=== PATIENT | female | born 1955 | race Caucasian/White ===

== ENCOUNTER 2018-04-14 11:17 | Day surgery (SDC) | payer OTHER, MEDICARE ==
[2018-04-14] MEDS ORDERED: LR 1,000 ML IV ONE (12:21)
--- NOTE | 2018-04-14 12:33 | PDGENHP ---
History & Physical Chief Complaint: heartburn, reflux History of Present Illness: occ dysphagia to pills, HB more then previously Pertinent Past, Social, Family History: high chol, on pepcid, on paxil. no fhx colon cancer. no tobacco, no alcohol, drinks tea Relevant Physical Exam: A+Ox3. CTA. S1S2, RRR. +BS, soft nt Cardiorespiratory Assessment: class 2
--- NOTE | 2018-04-14 12:35 | PDANEPAE ---
ANE History of Present Illness EGD for heartburn and cough ANE Past Medical History - Cardiovascular History Hx Hypertension: No Hx Arrhythmias: No Hx Chest Pain: No Hx Coronary Artery / Peripheral Vascular Disease: No Hx CHF / Valvular Disease: No Hx Palpitations: No - Pulmonary History Hx COPD: No Hx Asthma/Reactive Airway Disease: No Hx Recent Upper Respiratory Infection: No Hx Oxygen in Use at Home: No Hx Sleep Apnea: No Sleep Apnea Screening Result - Last Documented: Negative - Neurologic History Hx Cerebrovascular Accident: No Hx Seizures: No Hx Dementia: No - Endocrine History Hx Diabetes: No - Renal History Hx Renal Disorders: No - Liver History Hx Hepatic Disorders: No - Neurological & Psychiatric Hx Hx Neurological and Psychiatric Disorders: Yes Neurological / Psychiatric History Comment: DEPRESSION - Cancer History Hx Cancer: No - Congenital Disorder History Hx Congenital Disorders: No - GI History Hx Gastrointestinal Disorders: Yes Gastrointestinal History Comment: HEARTBURN - Other Health History Other Health History: DRY COUGH FOR YEARS - Chronic Pain History Chronic Pain: No - Surgical History Prior Surgeries: COLONOSCOPIES. PART HYST. CYSTOCELE/RECTOCELE REPAIR. BILATERAL CATARACTS. RT ARM CLOSED REDUCTION FX ANE Review of Systems Review of Systems: - Exercise capacity METS (RN): 6 METS ANE Patient History - Allergies Allergies/Adverse Reactions: amoxicillin [Amoxicillin] Allergy (Mild, Verified 04/06/18 15:06) Rash azithromycin Allergy (Verified 04/06/18 15:08) Rash doxycycline Allergy (Verified 04/06/18 15:08) Rash metronidazole [From Flagyl] Allergy (Verified 04/06/18 15:06) DIZZY/DISORIENTATION midazolam [From Versed] Allergy (Verified 04/14/18 12:30) Penicillins Allergy (Verified 04/06/18 15:06) Rash - Home Medications Home Medications: Paxil DAILY 10/28/13 [Last Taken 04/13/18] Famotidine BID 04/06/18 [Last Taken 04/13/18] Herbals/Supplements -Info Only DAILY 04/06/18 [Last Taken 03/09/18] Methylfolate DAILY 04/06/18 [Last Taken 04/13/18 18:00] - NPO status NPO Since - Liquids (Date): 04/14/18 NPO Since - Liquids (Time): 08:00 NPO Since - Solids (Date): 04/13/18 - Anes Hx Anes Hx: no prior problems - Smoking Hx Smoking Status: Never smoked - Alcohol Use Alcohol Use: None ANE Labs/Vital Signs - Vital Signs Blood Pressure: 127/77 Heart Rate: 65 Respiratory Rate: 16 O2 Sat (%): 97 Height: 165.1 cm Weight: 67.132 kg ANE Physical Exam - Airway Neck exam: FROM Mallampati Score: Class 2 Mouth exam: normal dental/mouth exam - Pulmonary Pulmonary: no respiratory distress - Cardiovascular Cardiovascular: regular rate and rhythym - ASA Status ASA Status: I ANE Anesthesia Plan Anesthesia Plan: GA with mask Total IV Anesthesia: Yes
[2018-04-14] MEDS ORDERED: fentaNYL 100 MCG/2 ML INJ ONE (12:41)
[2018-04-14] MEDS ORDERED: PROPOFOL 200 MG/20 ML VIAL ONE (12:41)
--- NOTE | 2018-04-14 13:03 | GIREPORT ---
[facility] [place] Surgical Services - Endoscopy Department Patient Name: Gabi Bravo Procedure Date: 04/14/2018 12:16 PM Patient Type: Outpatient Attending MD/ ER Physician: Jerry Means Procedure: Upper GI endoscopy Indications: Dysphagia, Heartburn Providers: Som Hunt MD Referring MD: Octavia Walker Medicines: Propofol per Anesthesia = IV general w/o airway Complications: No immediate complications. Estimated blood loss: Minimal. Description of Procedure: After obtaining informed consent, the endoscope was passed under direct vision. Throughout the procedure, the patient's blood pressure, pulse, and oxygen saturations were monitored continuously. The Endoscope was intro duced through the mouth, and advanced to the third part of duodenum. The uppe r GI endoscopy was accomplished without difficulty. The patient tolerated th e procedure well. Findings: The upper third of the esophagus was normal. Biopsies were obtained fro m the proximal and distal esophagus with cold forceps for histology of suspec jacob eosinophilic esophagitis. LA Grade A (one or more mucosal breaks less than 5 mm, not extending be tween tops of 2 mucosal folds) esophagitis with no bleeding was found in the lower third of the esophagus. Biopsies were taken with a cold forceps for histology. Estimated blood loss was minimal. Diffuse mild inflammation characterized by erosions, erythema and friab ility was found in the gastric antrum. Biopsies were taken with a cold forcep s for histology. Estimated blood loss was minimal. The examined duodenum was normal. The exam was otherwise without abnormality. Estimated Blood Loss: Estimated blood loss was minimal. Post Op Diagnosis: - Normal upper third of esophagus. Biopsied. - LA Grade A reflux esophagitis. Biopsied. (minimal changes of reflux o n EGD) - Gastritis. Biopsied. - Normal examined duodenum. - The examination was otherwise normal. Recommendation: - Await pathology results. - My office will call with the pathology result with 5-7 days. If you h ave not heard from my office by 12-14, do not assume the pathology is vignesh l, please call [phone] to get the pathology reults. - Follow an antireflux regimen. - If no evidence of Tellez's, the correct amount of acid reducing mediations is the lest amount that controls her symptoms. can change be tween PPI and H2RA as needed. - Can try pepcid 10mg BID as long as pathology is not c/w Tellez's (I doubt Tellez's). If continues to do well can try once per day. - Follow an antireflux regimen. - Patient has a contact number available for emergencies. The signs and symptoms of potential delayed complications were discussed with the pat ient. Return to normal activities tomorrow. Written discharge instructions we re provided to the patient. - Continue present medications. - Discharge patient to home (ambulatory). - Return to GI clinic PRN. - Return to primary care physician as previously scheduled. - Thank you for allowing me to help in your patient's care. Do not hesi copeland to call with any questions. Attending Participation: I personally performed the entire procedure. Gilbert Kearns M.D Som Hunt MD 04/14/2018 1:03:04 PM This report has been signed electronicallyMathew MD Gilbert Number of Addenda: 0 Note Initiated On: 04/14/2018 12:16 PM [email or web address]
[2018-04-14 13:50] VITALS: BP 98/88
--- NOTE | 2018-04-15 07:04 | POSTANESTH ---
Post Anesthetic Evaluation Cardiovascular Status: Normal, Stable Respiratory Status: Normal, Stable Level of Consciousness/Mental Status: Can Participate in Eval Pain Control: Adequate, Prn Tx Ordered Nausea/Vomiting Control: Adequate, Prn Tx Ordered Complications Possibly Related to Anesthesia: None Noted (seen in PACU about 1330 on 04/14/18)
== END 2018-04-14 14:08 | disposition home or self-care (01) ==
LOC: FSGY 11:17
PROVIDERS: ATTEND Internal Medicine Gastroenterology
PROC: 0DB38ZX Excision of Lower Esophagus, Via Natural or Artificial Opening Endoscopic, Diagnostic (ICD-10-PCS; principal; 2018-04-14 12:30)
PROC: 0DB68ZX Excision of Stomach, Via Natural or Artificial Opening Endoscopic, Diagnostic (ICD-10-PCS; principal; 2018-04-14 12:30)
PROC: 0DB18ZX Excision of Upper Esophagus, Via Natural or Artificial Opening Endoscopic, Diagnostic (ICD-10-PCS; principal; 2018-04-14 12:30)
DX: K21.0 Gastro-esophageal reflux disease with esophagitis (principal); K29.70 Gastritis, unspecified, without bleeding; R13.10 Dysphagia, unspecified; Z88.0 Allergy status to penicillin
CPT/HCPCS: J2704; J3010

== ENCOUNTER → 2018-08-24 | Outpatient (CLI) | payer OTHER, MEDICARE | LOC: FIMAGING 12:37 | PROVIDERS: ATTEND Orthopaedic Surgery Hand Surgery | DX: S52.501A Unspecified fracture of the lower end of right radius, initial encounter for closed fracture (principal); S52.601A Unspecified fracture of lower end of right ulna, initial encounter for closed fracture ==

== ENCOUNTER → 2018-12-13 | Outpatient (CLI) | payer OTHER, MEDICARE | LOC: FIMAGING 15:04 | PROVIDERS: ATTEND Orthopaedic Surgery Sports Medicine | DX: M24.811 Other specific joint derangements of right shoulder, not elsewhere classified (principal) ==

== ENCOUNTER → 2019-04-25 | Outpatient (CLI) | payer OTHER, MEDICARE | LOC: FIMAGING 15:48 ==